=== PATIENT | female | born 1960 | race Caucasian/White ===

== ENCOUNTER 2024-02-10 08:10 | Inpatient (IN) | payer OTHER ==
[~2024-02-10] VITALS: Ht 170.2 cm; Wt 93.6 kg
[~2024-02-10 08:10] MED LIST: CARV6.2551 PO; CYCL-837 PO; DAPA1TAB4 PO; GABA-339 PO; HYDR-3682 PO; HYDR1TAB97 PO; LOSA-533 PO; QUET50TA PO; TOPI100T68 PO; TRAZ-228 PO
[2024-02-10] MEDS: levoFLOXacin 750MG 150 ML IV ONE (10:00)
[2024-02-10] MEDS: TRANEXAMIC ACID 20 ML ONE (10:25)
[2024-02-10] MEDS ORDERED: MEPERIDINE HCL (50 MG/ML) 1 ML VIAL ONE (10:34)
[2024-02-10] MEDS ORDERED: ONDANSETRON HCL 4 MG/2 ML VIAL ONE (10:34)
[2024-02-10] MEDS ORDERED: fentaNYL CITRATE 100 MCG/2 ML VL ONE ×3 (10:34→14:25)
[2024-02-10] MEDS ORDERED: PROPOFOL 10 MG/ML 20 ML IV ONE ×2 (10:34→13:17)
[2024-02-10] MEDS ORDERED: SODIUM CHLORIDE LOCK 50 ML ONE (10:34)
[2024-02-10] MEDS ORDERED: KETAMINE 50mg/ML 1ml syringe ONE (10:34)
[2024-02-10] MEDS ORDERED: ROCURONIUM 10MG/ML 10ML VIAL IV ONE (10:34)
[2024-02-10] MEDS ORDERED: LIDOCAINE 1% INJ PF 5ML AMP ONE (10:34)
[2024-02-10] MEDS ORDERED: MIDAZOLAM HCL 2MG/2ML 2ml VIAL (1mg/ml) ONE (10:34)
[2024-02-10] MEDS ORDERED: MORPHINE SULFATE INJ 2 MG/ml SYRG IV PRN ×4 (11:15→21:30)
[2024-02-10] MEDS ORDERED: HYDROmorphone HCL 2 MG/ML VL/or syr IV PRN ×2 (11:15)
[2024-02-10] MEDS: METOCLOPRAMIDE HCL 5MG/ml INJ 2ml VIAL IV ONE (11:15)
[2024-02-10] MEDS: KETOROLAC TROMETH 30 MG/ML 1ML VIAL IV ONE (11:15)
[2024-02-10] MEDS ORDERED: fentaNYL CITRATE 100 MCG/2 ML VL IV PRN (11:15)
[2024-02-10] MEDS: ceFAZolin 2 GM/D5W50ml 50 ML IV ONE (11:43)
[2024-02-10] MEDS: LIDOCAINE W/ EPINEPHRINE 1% 20ML VIAL ONE (12:56)
[2024-02-10] MEDS ORDERED: NITROGLYCERIN 0.4 MG SL TAB SL PRN (15:15)
[2024-02-10] MEDS ORDERED: ACETAMINOPHEN 325 MG TAB PO PRN (15:15)
[2024-02-10] MEDS ORDERED: ONDANSETRON HCL 4 MG/2 ML VIAL IV PRN (15:15)
[2024-02-10 17:27] VITALS: BP 112/59; PULSE 59; RESP 16; TEMP 98.2; O2SAT 95
[2024-02-10 17:56] VITALS: BP 115/59; PULSE 60; RESP 17; O2SAT 95
[2024-02-10 20:00] VITALS: PULSE 71
[2024-02-10 21:00] VITALS: BP 123/71; PULSE 71; RESP 20; TEMP 97.7; O2SAT 96
[2024-02-10] MEDS: DOCUSATE SOD 100 MG CAP PO SCH (21:19)
[2024-02-10] MEDS: LOSARTAN POTASSIUM 25 MG TAB PO SCH (21:20)
[2024-02-10] MEDS: GABAPENTIN 300 MG CAP PO SCH (21:21)
[2024-02-10] MEDS: CARVEDILOL 3.125 MG TAB PO SCH (21:23)
[2024-02-10] MEDS: TOPIRAMATE 100 MG TAB PO SCH (21:24)
[2024-02-10] MEDS: CYCLOBENZAPRINE HCL 10 MG TAB PO SCH (21:24)
[2024-02-10] MEDS: ceFAZolin 1GM/50ML 50 ML IV SCH (21:24)
[2024-02-10] MEDS: HYDROcodone-ACET 10/325MG TAB PO PRN (22:39)
[2024-02-11] VITALS (8 sets, daily range): BP systolic 100–117; BP diastolic 49–71; PULSE 76–87; RESP 16–20; TEMP 97.4–98; O2SAT 93–96
[2024-02-11] MEDS: D5W/SOD CHLO 0.9% 1,000 ML IV SCH (01:32)
[2024-02-12 05:00] VITALS: BP 106/49; PULSE 92; RESP 18; TEMP 97.8; O2SAT 98
[2024-02-12 08:00] VITALS: PULSE 82
[2024-02-12 09:18] VITALS: BP 104/55; PULSE 87; RESP 16; TEMP 98; O2SAT 95
[2024-02-12 10:19] LABS: Hepatitis B Surface Antigen Negative (Negative)
[2024-02-12 10:40] LABS: Hepatitis C Antibody Negative (Negative)
[2024-02-12 15:10] LABS: Basophils # (auto) 0 10 ^3/uL (0-0.2); Basophils % (auto) 0.6 % (0.0-2.0); Eosinophils # (auto) 0.1 10 ^3/uL (0-0.8); Eosinophils % (auto) 1.8 % (0.0-7.0); Hematocrit 26.2 % (36.0-46.0); Hemoglobin 8.9 g/dL (12.2-16.2); Lymphocytes # (auto) 1.1 10 ^3/uL (0.4-5.4); Lymphocytes % (auto) 25.1 % (10.0-50.0); Mean Corpuscular Hemoglobin 31.4 pg (28.0-32.0); Mean Corpuscular Hgb Conc. 33.8 g/dL (32.0-36.0); Mean Corpuscular Volume 92.8 fL (80.0-100.0); Monocytes # (auto) 0.5 10 ^3/uL (0-1.3); Monocytes % (auto) 12.2 % (0.0-12.0); Neutrophils # (auto) 2.5 10 ^3/uL (1.6-8.6); Neutrophils % (auto) 60.3 % (37.0-80.0); Nucleated Red Blood Cells % 0.1 %; Platelet Count (auto) 151 10^3/uL (140-450); Red Blood Cells 2.82 10^6/uL (4.0-5.20); Red Cell Distribution Width 13.6 % (11.8-14.3); White Blood Cell 4.2 10^3/uL (4.4-10.8)
[2024-02-12 15:18] LABS: Chloride 112 mmol/L (98-107); Potassium 4.3 mmol/L (3.5-5.1); Sodium 139 mmol/L (136-145)
[2024-02-12 15:19] LABS: Anion Gap 5 (5-15); Calcium 8.5 mg/dL (8.7-10.4); Carbon Dioxide 22 mmol/L (20-30)
[2024-02-12 15:24] LABS: BUN/Creatinine Ratio 10.1 (10.0-20.0); Blood Urea Nitrogen 19 mg/dL (9-23); Glucose 106 mg/dL (74-106)
[2024-02-12 20:00] VITALS: PULSE 90
[2024-02-12 21:00] VITALS: BP 131/74; PULSE 92; TEMP 97.9; O2SAT 96
[2024-02-13] VITALS (7 sets, daily range): BP systolic 98–122; BP diastolic 54–68; PULSE 80–100; RESP 16–19; TEMP 97–98.4; O2SAT 94–98
[2024-02-14 04:25] VITALS: BP 90/56; PULSE 83; RESP 17; TEMP 98.6; O2SAT 96
[2024-02-14 08:00] VITALS: PULSE 84; RESP 18; O2SAT 97
[2024-02-14 09:00] VITALS: BP 101/56; PULSE 83; RESP 16; TEMP 98.2; O2SAT 97
[2024-02-14 13:00] VITALS: BP 96/49; PULSE 82; RESP 18; TEMP 97.9; O2SAT 93
[2024-02-14] MEDS: GABAPENTIN 300 MG CAP PO SCH (13:49)
[2024-02-14 17:00] VITALS: BP 91/52; PULSE 90; RESP 16; TEMP 97.8; O2SAT 91
[2024-02-14 17:38] VITALS: BP 101/56; PULSE 90; RESP 16; TEMP 97.8; O2SAT 94
== END 2024-02-14 19:45 | disposition home health service (06) | DRG 455 ==
LOC: SUR 08:10 → TELE 15:07 → TELE-CENTR 17:15
PROVIDERS: ADMIT Orthopaedic Surgery; ATTEND Internal Medicine
PROC: 0SG1071 Fusion of 2 or more Lumbar Vertebral Joints with Autologous Tissue Substitute, Posterior Approach, Posterior Column, Open Approach (ICD-10-PCS; 2024-02-10)
PROC: 01NB0ZZ Release Lumbar Nerve, Open Approach (ICD-10-PCS; 2024-02-10)
PROC: 00NY0ZZ Release Lumbar Spinal Cord, Open Approach (ICD-10-PCS; 2024-02-10)
PROC: 4A11X4G Monitoring of Peripheral Nervous Electrical Activity, Intraoperative, External Approach (ICD-10-PCS; 2024-02-10)
PROC: 0SG00AJ Fusion of Lumbar Vertebral Joint with Interbody Fusion Device, Posterior Approach, Anterior Column, Open Approach (ICD-10-PCS; principal; 2024-02-10 11:43)
DX: M48.062 Spinal stenosis, lumbar region with neurogenic claudication (principal); F51.04 Psychophysiologic insomnia; I10 Essential (primary) hypertension; M51.16 Intervertebral disc disorders with radiculopathy, lumbar region; M41.56 Other secondary scoliosis, lumbar region
CPT/HCPCS: 36415; 72100; 72131; 76000; 80048; 83735; 85025; 86803; 86850; 86900; 86901; 87081; 87340; 97110; 97116; 97163; 97530; G0378; J2250; J2405; J2704; J7042